=== PATIENT | female | born 1935 | race Two or more races ===

== ENCOUNTER 2024-03-24 12:02 | Inpatient (IN) | payer OTHER ==
[~2024-03-24] VITALS: Ht 162.6 cm; Wt 78.6 kg
[2024-03-24] MEDS ORDERED: 0.9% SODIUM CHLORIDE 10 ML SYRINGE IVP PRN (12:15)
[2024-03-24] MEDS: SODIUM CHLORIDE 0.9% 1,300 ML IV ONE (12:15)
[2024-03-24] MEDS ORDERED: SODIUM CHLORIDE 0.9% 100 ML ONE (12:34)
[2024-03-24] MEDS ORDERED: IOHEXOL 350 MG/ML 100 ML VIAL ONE (12:34)
[2024-03-24] MEDS ORDERED: 0.9% SODIUM CHLORIDE 10 ML SYRINGE IVP ONE (12:34)
[2024-03-24 12:39] LABS: BASOPHILS % (AUTO) 0.3 % (0.0-2.0); EOSINOPHILS % (AUTO) 1.5 % (1.0-6.0); HEMATOCRIT 33.6 % (36-46); LYMPHOCYTES # (AUTO) 0.6 K/uL (1.0-4.8); MEAN CORPUSCULAR HEMOGLOBIN 32.2 pg (26.0-34.0); MEAN CORPUSCULAR HGB CONC 32.9 G/dL (31.0-37.0); MEAN CORPUSCULAR VOLUME 98 fL (80-100); MONOCYTES # (AUTO) 0.6 K/uL (0.1-1.0); MONOCYTES % (AUTO) 6.4 % (2.0-9.0); NEUTROPHILS # (AUTO) 8.2 K/uL (1.8-7.7); PLATELET COUNT (AUTO) 219 K/uL (150-450); RED BLOOD CELL COUNT(AUTO) 3.43 MIL/uL (4.00-5.20); RED CELL DISTRIBUTION WIDTH 28.5 % (11.5-14.5); WHITE BLOOD COUNT (AUTO) 9.6 K/uL (4.5-11.0)
[2024-03-24 12:40] LABS: NEUTROPHILS % (AUTO) 85.8 % (40.0-70.0)
[2024-03-24] MEDS ORDERED: RIFAX550 PO (12:41)
[2024-03-24] MEDS ORDERED: APIX5TAB PO (12:41)
[2024-03-24] MEDS ORDERED: HYDR12.56 PO (12:41)
[2024-03-24] MEDS ORDERED: CARV12.530 PO (12:41)
[2024-03-24] MEDS ORDERED: LEVO88TA7 PO (12:41)
[2024-03-24] MEDS ORDERED: LOSA-382 PO (12:41)
[2024-03-24] MEDS ORDERED: CHOL200059 PO (12:41)
[2024-03-24] MEDS ORDERED: PANT40TA54 PO (12:41)
[2024-03-24 12:44] LABS: ANION GAP 11 mmol/L (8-16); CALCIUM, TOTAL 8.1 mg/dL (8.8-10.5); CARBON DIOXIDE 23 mmol/L (22-29); CHLORIDE 101 mmol/L (98-107); GLOMERULAR FILTR. RATE CALC 59 mL/min (>60); GLUCOSE,RANDOM 115 mg/dL (70-110); SODIUM SERUM 135 mmol/L (136-145); UREA NITROGEN, BLOOD 12 mg/dL (7-18)
[2024-03-24 12:50] LABS: ALANINE AMINOTRANSFERASE 95 U/L (12-78); ALKALINE PHOSPHATASE 728 U/L (46-116); ASPARTATE AMINOTRANSFERASE 273 U/L (15-37); BILIRUBIN,TOTAL 3.7 mg/dL (0.1-1.0); TOTAL PROTEIN, SERUM 7.2 g/dL (6.4-8.2)
[2024-03-24 12:51] LABS: TROPONIN I-HIGH SENSITIVITY 9 ng/L (<51)
[2024-03-24] MEDS ORDERED: BISACODYL 10 MG RECTAL RECTAL SUPPOSITORY PR PRN (13:15)
[2024-03-24] MEDS: ACETAMINOPHEN 325 MG TABLET PO ONE (13:29)
[2024-03-24] MEDS: METOPROLOL TARTRATE 5 MG/5 ML VIAL IVP ONE (13:30)
[2024-03-24] MEDS: SODIUM CHLORIDE 0.9% 1,000 ML IV ONE ×2 (13:30→16:12)
[2024-03-24 13:40] LABS: LACTIC ACID 2.5 mmol/L (0.4-2.0)
[2024-03-24] MEDS: CefTRIAXone 1 GM/DEXTROSE 50 ML IV SCH (13:41)
[2024-03-24] MEDS: SODIUM CHLORIDE 0.9% 500 ML IV ONE (13:45)
[2024-03-24 13:51] LABS: APPEARANCE,URINE CLEAR (CLEAR); BILIRUBIN,URINE NEGATIVE (NEGATIVE); COLOR,URINE YELLOW (YELLOW); GLUCOSE, URINE (UA) NEGATIVE (NEGATIVE); KETONES,URINE NEGATIVE (NEGATIVE); LEUKOCYTE ESTERASE ,URINE NEGATIVE (NEGATIVE); NITRATE,URINE NEGATIVE (NEGATIVE); OCCULT BLOOD,URINE NEGATIVE (NEGATIVE); PH,URINE 5.5 (5.0-8.0); PROTEIN,URINE NEGATIVE (NEGATIVE); SPECIFIC GRAVITIY, URINE 1.037 (1.003-1.030); UROBILINOGEN,URINE <=1.0 mg/dL (<=1.0)
[2024-03-24 13:52] LABS: PH,URINE DRUG SCREEN 5.5 (5.0-8.0)
[2024-03-24 13:58] LABS: ALCOHOL, URINE DRUG SCREEN NEGATIVE (NEGATIVE); AMPHET/METH SCREEN,URINE NEGATIVE (NEGATIVE); BARBITURATE SCREEN, URINE NEGATIVE (NEGATIVE); BENZODIAZEPINES SCREEN,URINE NEGATIVE (NEGATIVE); CANNABINOID SCREEN,URINE NEGATIVE (NEGATIVE); COCAINE SCREEN,URINE NEGATIVE (NEGATIVE); METHADONE SCREEN, URINE NEGATIVE (NEGATIVE); OPIATE SCREEN,URINE NEGATIVE (NEGATIVE); PHENCYCLIDINE SCREEN,URINE NEGATIVE (NEGATIVE)
[2024-03-24] MEDS: AZITHROMYCIN 500 MG/NS 250 ML IV SCH (14:25)
[2024-03-24] MEDS: HEPARIN SODIUM,PORCINE 5,000 UNITS/ML VIAL SQ SCH (15:45)
[2024-03-24 17:06] LABS: COVID AG,FIA SOURCE NASAL SWAB
[2024-03-24 17:27] LABS: INFLUENZA TYPE A NEGATIVE FOR TYPE A (NEGATIVE); INFLUENZA TYPE B NEGATIVE FOR TYPE B (NEGATIVE); SARS-COV2 (COVID) ANTIGEN,FIA Negative (Negative)
[2024-03-24 17:45] VITALS: BP 95/68; PULSE 105; RESP 18; TEMP 98; O2SAT 96
[2024-03-24 18:35] LABS: TROPONIN I-HIGH SENSITIVITY 13 ng/L (<51)
[2024-03-24 20:00] VITALS: BP 105/56; PULSE 93; RESP 19; TEMP 97.7; O2SAT 99
[2024-03-25] VITALS: BP 112/60; PULSE 91; RESP 19; TEMP 98.1; O2SAT 98
[2024-03-25 04:00] VITALS: BP 100/52; PULSE 92; RESP 18; TEMP 97.5; O2SAT 97
[2024-03-25 07:18] LABS: TROPONIN I-HIGH SENSITIVITY 12 ng/L (<51)
[2024-03-25 07:30] VITALS: BP 104/68; PULSE 91; RESP 19; TEMP 98.2; O2SAT 98
[2024-03-25] MEDS: DIGOXIN 125 MCG TABLET PO SCH (08:50)
[2024-03-25] MEDS: PANTOPRAZOLE SODIUM 40 MG/VIAL IVP SCH (08:50)
[2024-03-25] MEDS: SODIUM CHLORIDE 0.9% 1,000 ML IV ONE (11:06)
[2024-03-25 11:44] VITALS: BP 101/59; PULSE 87; RESP 19; TEMP 97.7; O2SAT 98
[2024-03-25 13:04] LABS: INR 1.4 (0.9-1.1); PROTHROMBIN TIME 14.5 SEC (9.4-11.6)
[2024-03-25 15:47] VITALS: BP 104/54; PULSE 87; RESP 18; TEMP 97.8; O2SAT 99
[2024-03-25 20:21] VITALS: BP 115/75; PULSE 95; RESP 19; TEMP 98.2; O2SAT 100
[2024-03-25 20:32] LABS: CHOL/HDL RATIO 4.6 (3.9-5.7)
[2024-03-25] MEDS ORDERED: APIXABAN 2.5 MG TABLET PO SCH (21:00)
[2024-03-26 00:22] VITALS: BP 125/67; PULSE 92; RESP 18; TEMP 98; O2SAT 100
[2024-03-26 04:32] VITALS: BP 132/80; PULSE 74; RESP 19; TEMP 98.1; O2SAT 100
[2024-03-26 06:52] LABS: BASOPHILS % (AUTO) 0.2 % (0.0-2.0); HEMATOCRIT 31.1 % (36-46); HEMOGLOBIN 10.4 g/dL (12.0-16.0); LYMPHOCYTES # (AUTO) 0.7 K/uL (1.0-4.8); LYMPHOCYTES % (AUTO) 9.2 % (22.0-44.0); MEAN CORPUSCULAR HEMOGLOBIN 32.9 pg (26.0-34.0); MEAN CORPUSCULAR HGB CONC 33.4 G/dL (31.0-37.0); MEAN CORPUSCULAR VOLUME 99 fL (80-100); MONOCYTES # (AUTO) 0.5 K/uL (0.1-1.0); MONOCYTES % (AUTO) 6.3 % (2.0-9.0); NEUTROPHILS # (AUTO) 6.1 K/uL (1.8-7.7); NEUTROPHILS % (AUTO) 81.3 % (40.0-70.0); PLATELET COUNT (AUTO) 208 K/uL (150-450); RED BLOOD CELL COUNT(AUTO) 3.15 MIL/uL (4.00-5.20); RED CELL DISTRIBUTION WIDTH 27.9 % (11.5-14.5); WHITE BLOOD COUNT (AUTO) 7.5 K/uL (4.5-11.0)
[2024-03-26 07:04] LABS: RBC MORPHOLOGY COMMENT ABNORMAL RBC MORPH
[2024-03-26 07:21] LABS: ANION GAP 10 mmol/L (8-16); CALCIUM, TOTAL 7.8 mg/dL (8.8-10.5); CARBON DIOXIDE 21 mmol/L (22-29); CHLORIDE 106 mmol/L (98-107); CREATININE 0.86 mg/dL (0.60-1.30); GLOMERULAR FILTR. RATE CALC > 60 mL/min (>60); GLUCOSE,RANDOM 73 mg/dL (70-110); POTASSIUM 3.8 mmol/L (3.5-5.1); SODIUM SERUM 137 mmol/L (136-145); UREA NITROGEN, BLOOD 16 mg/dL (7-18)
[2024-03-26 09:24] VITALS: BP 126/77; PULSE 93; RESP 18; TEMP 97.8; O2SAT 100
[2024-03-26 16:17] VITALS: BP 102/55; PULSE 88; RESP 18; TEMP 97.4; O2SAT 100
[2024-03-26 20:23] VITALS: BP 112/64; PULSE 88; RESP 18; TEMP 98.3; O2SAT 99
[2024-03-27 06:24] VITALS: BP 120/92; PULSE 75; RESP 20; TEMP 98; O2SAT 100
[2024-03-27 08:09] VITALS: BP 125/72; PULSE 87; RESP 20; TEMP 97.5; O2SAT 100
[2024-03-27 17:26] VITALS: BP 128/68; PULSE 88; RESP 20; TEMP 98.2; O2SAT 100
[2024-03-27 20:22] VITALS: BP 130/73; PULSE 96; RESP 22; TEMP 98.2; O2SAT 100
[2024-03-28 04:10] VITALS: BP 139/77; PULSE 91; RESP 22; TEMP 98.2; O2SAT 100
[2024-03-28 08:10] VITALS: BP 126/78; PULSE 90; RESP 20; TEMP 98.4; O2SAT 100
[2024-03-28] MEDS ORDERED: ALBUTEROL SULFATE 2.5 MG/0.5 ML NEB SOLUTION NEB PRN (14:00)
[2024-03-28] MEDS: ALBUTEROL SULFATE 2.5 MG/0.5 ML NEB SOLUTION NEB PRN (17:00)
[2024-03-28 17:04] VITALS: PULSE 94; RESP 20; O2SAT 98
[2024-03-28 17:08] VITALS: BP 124/74; PULSE 88; RESP 18; TEMP 98.6; O2SAT 96
[2024-03-28 17:16] VITALS: PULSE 95; RESP 20; O2SAT 99
[2024-03-28 19:56] VITALS: BP 126/77; PULSE 89; RESP 18; TEMP 98.7; O2SAT 100
[2024-03-28] MEDS: RIFAXIMIN 550 MG TABLET PO SCH (20:18)
[2024-03-29] VITALS (7 sets, daily range): BP systolic 109–137; BP diastolic 64–80; PULSE 78–100; RESP 18–20; TEMP 97.9–98.6; O2SAT 97–100
[2024-03-29] MEDS: LEVOTHYROXINE SODIUM 88 MCG TABLET PO SCH (06:32)
[2024-03-29] MEDS: ACETAMINOPHEN 325 MG TABLET PO PRN (18:29)
[2024-03-30 05:50] VITALS: BP 127/68; PULSE 87; RESP 18; TEMP 97.7; O2SAT 98
[2024-03-30 07:46] VITALS: BP 135/70; PULSE 76; RESP 20; TEMP 97.9; O2SAT 100
[2024-03-30 15:59] VITALS: BP 117/64; PULSE 88; RESP 20; TEMP 98.7; O2SAT 100
[2024-03-30 20:26] VITALS: BP 152/77; PULSE 103; RESP 20; TEMP 100; O2SAT 100
[2024-03-31 05:20] VITALS: BP 127/76; PULSE 82; RESP 18; TEMP 97.7; O2SAT 100
[2024-03-31 08:37] VITALS: BP 128/68; PULSE 70; RESP 18; TEMP 97.7; O2SAT 100
[2024-03-31 15:34] VITALS: BP 121/75; PULSE 83; RESP 18; TEMP 98.1; O2SAT 98
[2024-03-31 19:37] VITALS: BP 122/74; PULSE 88; RESP 20; TEMP 99.1; O2SAT 99
[2024-04-01 05:05] VITALS: BP 130/81; PULSE 78; RESP 19; TEMP 97.7; O2SAT 100
[2024-04-01 08:23] VITALS: BP 128/69; PULSE 84; RESP 18; TEMP 97.8; O2SAT 100
[2024-04-01 16:12] VITALS: BP 123/68; PULSE 83; RESP 18; TEMP 98.2; O2SAT 100
[2024-04-01 19:45] VITALS: BP 140/67; PULSE 83; RESP 18; TEMP 99.6; O2SAT 100
[2024-04-02 04:53] VITALS: BP 128/73; PULSE 74; RESP 18; TEMP 98.2; O2SAT 100
[2024-04-02 08:05] VITALS: BP 140/86; PULSE 69; RESP 18; TEMP 97.4; O2SAT 100
[2024-04-02 16:00] VITALS: BP 111/70; PULSE 87; RESP 18; TEMP 97.7; O2SAT 100
[2024-04-02 20:00] VITALS: BP 111/59; PULSE 87; RESP 18; TEMP 99.2; O2SAT 100
[2024-04-03 05:10] VITALS: BP 122/69; PULSE 96; RESP 20; TEMP 98; O2SAT 100
[2024-04-03 09:27] VITALS: BP 126/84; PULSE 88; RESP 19; TEMP 98; O2SAT 100
[2024-04-03 16:26] VITALS: BP 117/61; PULSE 83; RESP 19; TEMP 98.1; O2SAT 100
[2024-04-03 20:29] VITALS: BP 130/68; PULSE 75; RESP 18; TEMP 98.2; O2SAT 100
[2024-04-04 04:46] VITALS: BP 119/87; PULSE 70; RESP 20; TEMP 97.8; O2SAT 100
[2024-04-04 08:00] VITALS: BP 128/69; PULSE 85; RESP 19; TEMP 97.7; O2SAT 100
[2024-04-04 17:53] VITALS: BP 116/67; PULSE 115; RESP 19; TEMP 98.7; O2SAT 97
[2024-04-04 20:16] VITALS: BP 139/81; PULSE 90; RESP 18; TEMP 99.6; O2SAT 98
[2024-04-04 23:58] VITALS: TEMP 99.1
[2024-04-05 04:11] VITALS: BP 129/63; PULSE 96; RESP 18; TEMP 97.7; O2SAT 100
[2024-04-05 08:26] VITALS: BP 116/60; PULSE 87; RESP 18; TEMP 98; O2SAT 100
[2024-04-05 15:40] VITALS: BP 113/61; PULSE 87; RESP 18; TEMP 97.8; O2SAT 100
[2024-04-05] MEDS ORDERED: DIGO125T84 PO (17:21)
[2024-04-05] MEDS ORDERED: APIX2.5T PO (17:22)
== END 2024-04-05 18:39 | disposition hospice, inpatient (51) | DRG 720 ==
LOC: EMS 12:02 → EDH 13:41 → 5S 17:29 → 4E 03-26 20:49 → UNDODISIN 03-31 17:29
PROVIDERS: ADMIT Internal Medicine; ATTEND Internal Medicine
DX: A41.9 Sepsis, unspecified organism (principal); G93.41 Metabolic encephalopathy; E44.0 Moderate protein-calorie malnutrition; C22.9 Malignant neoplasm of liver, not specified as primary or secondary; D63.8 Anemia in other chronic diseases classified elsewhere; I48.91 Unspecified atrial fibrillation; R62.7 Adult failure to thrive; Z66 Do not resuscitate; Z20.822 Contact with and (suspected) exposure to COVID-19; Z51.5 Encounter for palliative care; Z68.29 Body mass index [BMI] 29.0-29.9, adult; Z79.01 Long term (current) use of anticoagulants; Z85.05 Personal history of malignant neoplasm of liver
CPT/HCPCS: 70496; 70498; 71045; 80048; 80053; 80061; 80307; 81003; 82140; 82948; 83605; 84145; 84484; 85025; 85610; 87040; 87081; 87804; 92610; 93005; 94640; 99285; C9113; G0378; J0456; J0696; J1644; J3490; J7030; J7050; 36415-L1; 36415-TC; 70450; 70450-TC; J7613